=== PATIENT | male | born 2000 | race Caucasian/White ===

== ENCOUNTER 2021-08-12 09:51 | Emergency (ER) | payer OTHER ==
[~2021-08-12] VITALS: Ht 162.6 cm; Wt 68.2 kg
[2021-08-12] MEDS ORDERED: NAPR-837 PO (11:24)
[2021-08-12 11:29] VITALS: BP 119/57
[2021-08-12 13:53] LABS: GC DNA AMPLIFICATION NEGATIVE (NEGATIVE)
== END 2021-08-12 11:32 | disposition home or self-care (01) ==
LOC: M ED 09:51
DX: N50.3 Cyst of epididymis (principal); N50.812 Left testicular pain